=== PATIENT | female | born 2000 | race Caucasian/White ===

== ENCOUNTER 2022-08-23 21:39 | Emergency (ER) | payer OTHER, SELFPAY ==
[2022-08-23 21:40] VITALS: BP 145/81; PULSE 85; RESP 17; TEMP 36; O2SAT 97; BMI 25.0
--- NOTE | 2022-08-23 21:50 | EX.ED.DYSGE1 ---
HPI History of Present Illness Chief Complaint: Lower Extremity Injury Informant: patient Narrative Narrative: Patient was playing rugby this afternoon at about 1 PM. She got tackled and landed on her right knee. She is not exactly sure how the landing went. She has pain mostly in the front of the knee. She has taped it up since. No other injuries. Nothing specifically makes it worse or better. She is overall healthy. PFSH PFSH Allergy/AdvReac Type Severity Reaction Status Date / Time Penicillins [PCN] Allergy Hives Verified 08/23/22 21:42 Social History Smoking Status: Never smoker ROS ROS ED Cardiovascular Cardiovascular: Denies chest pain Respiratory/Chest Respiratory/Chest: Denies cough or dyspnea Gastrointestinal Gastrointestinal: Denies nausea or vomiting Musculoskeletal Musculoskeletal: Reports arthralgias; Denies back pain or neck pain Integumentary Denies Abrasions or rash Neurologic Neurologic: Denies paresthesias or weakness Hematologic/Lymphatic Hematologic/Lymphatic: Denies easy bleeding or easy bruising Allergic/Immunologic Allergic/Immunologic ED: Denies urticaria EXAM Physical Exam Const Vital Signs: 08/23/22 21:40 Temperature 96.8 F L Temperature Source Temporal Pulse Rate 85 Respiratory Rate 17 Blood Pressure 145/81 H Blood Pressure Mean 102 Pulse Ox 97 Oxygen Delivery Method Room Air Positive well nourished and well developed General Appearance ED: well developed and NAD HEENT Reports moist mucous membranes Negative for trauma Eyes General Eye ED: Negative for pale conjunctiva Neck supple Resp normal respiratory effort Extremity normal to inspection Extremity Narrative: No deformity. Patella looks to be in place. There is no tenderness up near the hip. No tenderness in the coppola or ankle. She does have some mild anterior and anterior lateral patellar tenderness. Medially its not as tender. No real joint line tenderness. Knee is stable to varus valgus as well as Lester. No effusion. Extensor mechanism is intact. Neuro Sensorium / Orientation: alert Skin no rashes or lesions noted and no wounds MDM MDM MDM Narrative Medical decision making narrative: X-rays show no acute process. Patient can use ice rest Motrin or Aleve for pain. She should rest the knee until feeling better. If it is continuing to hurt she should have follow-up. She may need repeat imaging or further studies. Radiography Diagnostic Testing: Clinical Impression(s) from Imaging Studies Knee X-Ray 08/23/22 22:00 IMPRESSION: Negative right knee. Electronically Signed: Ra Henriquez MD at 22:23 EDT , Four view x-ray of the right knee looked at by me and read by radiology shows no acute process Discharge Plan Triage Chief Complaint: Lower Extremity Injury ED Provider: Dimitrios Delcid Dx/Rx/DC Orders Clinical Impression: Strain of right knee Instructions: ED Knee Sprain Primary Care Provider: Care Physician,No Primary Referrals: Morris Paez MD [Med Staff - Active Staff] - 1 Week if not improving NOT,DEFINED [Non-Staff] - Disposition Disposition: Home, Self Care
--- NOTE | 2022-08-23 22:00 | RAD_ITS ---
INDICATION: Trauma, knee pain after playing rugby EXAMINATION/TECHNIQUE: X-RAY - RIGHT XR Knee Complete 4 Views or More COMPARISON: None. FINDINGS: SOFT TISSUES: No significant soft tissue swelling or significant joint effusion. No radiopaque foreign body detected. BONES/JOINTS: No acute fracture or subluxation. Normal alignment. Preservation of the joint space(s). No suspicious osseous lesion observed. RAD/Knee 4 or More Views IMPRESSION: Negative right knee. Electronically Signed: Ra Henriquez MD at 22:23 EDT ,
== END 2022-08-23 23:05 | disposition home or self-care (01) ==
PROVIDERS: Emergency Provider Emergency Medicine; Visit Provider Emergency Medicine
DX: S83.91XA Sprain of unspecified site of right knee, initial encounter (principal); W03.XXXA Other fall on same level due to collision with another person, initial encounter; Y93.63 Activity, rugby
CPT/HCPCS: 73564; 99282